=== PATIENT | male | born 1970 | race African-American/Black ===

== ENCOUNTER 2017-08-03 17:55 | Emergency (ER) | payer SELFPAY ==
[~2017-08-03] VITALS: Ht 185.4 cm; Wt 122.5 kg
[2017-08-03] MEDS ORDERED: Methocarbamol 750mg tab ORAL ONE (18:15)
[2017-08-03] MEDS ORDERED: Ketorolac 30mg Inj IM ONE (18:15)
[2017-08-03 19:10] VITALS: BP 134/89
[2017-08-03] MEDS ORDERED: IBUPROFEN600 MG ORAL (19:44)
[2017-08-03] MEDS ORDERED: ROBAXIN-750750 MG PO (19:44)
[2017-08-03 20:00] VITALS: BP 133/84
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
== END 2017-08-03 20:00 | disposition home or self-care (01) ==
LOC: EDBD 17:55 → EMR 18:12
DX: S16.1XXA Strain of muscle, fascia and tendon at neck level, initial encounter (principal); M54.9 Dorsalgia, unspecified; V43.52XA Car driver injured in collision with other type car in traffic accident, initial encounter; Y93.9 Activity, unspecified; Y92.410 Unspecified street and highway as the place of occurrence of the external cause; M48.02 Spinal stenosis, cervical region
CPT/HCPCS: 72125; 96372; 99284; J1885